=== PATIENT | male | born 1935 | race Caucasian/White ===

== ENCOUNTER 2018-09-13 11:34 | Emergency (ER) | payer MEDICARE, MEDICAID ==
[~2018-09-13] VITALS: Ht 175.3 cm; Wt 98.0 kg
[2018-09-13] MEDS ORDERED: SODIUM CHLORIDE 0.9% 1,000 ML IV ONE (11:50)
[2018-09-13 12:49] LABS: HEMOGLOBIN. 13.2 g/dL (14.0-18.0); MEAN CORPUSCULAR HEMOGLOBIN 30.6 pg (28.0-32.0); MEAN CORPUSCULAR VOLUME 90.2 fL (80.0-94.0); PLATELET 187 x1000/uL (130-400); RED BLOOD CELL COUNT 4.32 mill/uL (4.7-6.1); RED CELL DISTRIBUTION WIDTH 14.6 % (11.6-14.6)
[2018-09-13 12:54] LABS: CHLORIDE 107 mEq/L (98-107)
[2018-09-13 12:58] LABS: PARTIAL THROMBOPLASTIN TIME 26.3 sec (23.4-31.0); PROTHROMBIN TIME 10.2 sec (9.6-11.0)
[2018-09-13] MEDS ORDERED: ASPIRIN 325MG EC TABLET PO ONE (13:45)
[2018-09-13 14:09] LABS: PLATELET ESTIMATE NORMAL
[2018-09-13 16:00] VITALS: BP 139/73
== END 2018-09-13 16:05 | disposition left against medical advice (07) ==
LOC: ER 12:53 → EDBEDREQ 13:46 → EDBEDREQTM 14:39 → CANRESERV 15:23 → ENRESERV 15:23 → ER 16:05 → CANBEDREQ 16:32
DX: R55 Syncope and collapse (principal); I25.10 Atherosclerotic heart disease of native coronary artery without angina pectoris; I10 Essential (primary) hypertension; V40.5XXA Car driver injured in collision with pedestrian or animal in traffic accident, initial encounter; Y93.89 Activity, other specified; Y92.488 Other paved roadways as the place of occurrence of the external cause; Z95.1 Presence of aortocoronary bypass graft
CPT/HCPCS: 36415; 70450; 71045; 80053; 83880; 84484; 85025; 85610; 85730; 93005; 96360; 99284; J7030

== ENCOUNTER → 2020-01-31 | Outpatient (CLI) | payer MEDICARE, MEDICAID ==
[~2020-01-31] MED LIST: FENTANYL CITRATE/PF 50MCG/ML 5ML VIAL ONE; IODIXANOL 320MG/ML 100 ML BOTTLE IV ONE; IOHEXOL-300 100 ML BOTTLE ONE; LIDOCAINE HCL 1% 20ML VIAL (Pyxis) INJ ONE; MIDAZOLAM HCL 5 MG/5 ML VIAL ONE; VERAPAMIL HCL 2.5 MG/1 ML 2ML VIAL IV ONE
== END | disposition home or self-care (01) ==
LOC: LAB 10:12
PROVIDERS: ATTEND Specialist
DX: Z01.812 Encounter for preprocedural laboratory examination (principal); Z20.828 Contact with and (suspected) exposure to other viral communicable diseases
CPT/HCPCS: C9803; U0003

== ENCOUNTER 2020-02-03 07:43 | Day surgery (SDC) | payer MEDICARE, MEDICAID ==
[~2020-02-03] VITALS: Ht 175.3 cm; Wt 98.0 kg
[2020-02-03 08:44] LABS: HEMATOCRIT 39.8 % (42.0-52.0); HEMOGLOBIN 13.4 g/dL (14.0-18.0); MEAN CORPUSCULAR HEMOGLOBIN 30.5 pg (28.0-32.0); MEAN CORPUSCULAR VOLUME 90.6 fL (80.0-94.0); PLATELET 149 x1000/uL (130-400); RED BLOOD CELL COUNT 4.39 mill/uL (4.7-6.1)
[2020-02-03] MEDS ORDERED: ATROPINE SULFATE 1MG/10ML SYR IV PRN (11:00)
[2020-02-03] MEDS ORDERED: ACETAMINOPHEN 325MG TABLET PO PRN (11:00)
[2020-02-03] MEDS ORDERED: SODIUM CHLORIDE 0.45% 400 ML IV SCH (11:00)
[2020-02-03] MEDS ORDERED: HEPARIN SODIUM 1,000 UNIT/1ML VIAL IV ONE (11:00)
== END 2020-02-03 17:00 | disposition home or self-care (01) ==
LOC: CCL 07:43
PROVIDERS: ATTEND Internal Medicine
DX: I25.110 Atherosclerotic heart disease of native coronary artery with unstable angina pectoris (principal); I10 Essential (primary) hypertension; E78.00 Pure hypercholesterolemia, unspecified; Z95.1 Presence of aortocoronary bypass graft; Z79.899 Other long term (current) drug therapy; Z98.890 Other specified postprocedural states
CPT/HCPCS: 36415; 80048; 85027; 93005; 93459; C1760; C1769; C1887; C1893; J1644; J3010; J3490; Q9967; 99152; 99153; G0500

== ENCOUNTER 2022-02-05 14:34 | Emergency (ER) | payer MEDICARE, MEDICAID ==
[~2022-02-05] VITALS: Ht 167.6 cm; Wt 100.0 kg
[2022-02-05 15:25] LABS: BASOPHILS % 1.3 % (0.0-2.0); EOSINOPHILS % 0.9 % (0.0-5.0); HEMATOCRIT. 38.4 % (42.0-52.0); HEMOGLOBIN. 12.9 g/dL (14.0-18.0); LYMPHOCYTES % 23.1 % (20.0-50.0); MEAN CORPUSCULAR HEMOGLOBIN 30.2 pg (28.0-32.0); MEAN CORPUSCULAR VOLUME 89.8 fL (80.0-94.0); MEAN PLATELET VOLUME 9.1 fl (7.4-10.4); MONOCYTES % 10.3 % (2.0-8.0); NEUTROPHILS % 64.4 % (40.0-76.0); PLATELET 167 x1000/uL (130-400); RED BLOOD CELL COUNT 4.27 mill/uL (4.7-6.1); RED CELL DISTRIBUTION WIDTH 14.7 % (11.6-14.6)
[2022-02-05 15:30] LABS: CHLORIDE 108 mEq/L (98-107)
[2022-02-05 15:47] LABS: PROTHROMBIN TIME 10.9 sec (9.6-11.0)
[2022-02-05] MEDS ORDERED: SODIUM CHLORIDE 0.9% 1,000 ML IV ONE (16:00)
[2022-02-05 16:36] LABS: CLARITY URINE CLOUDY (CLEAR); COLOR URINE DARK YELLOW (YELLOW); KETONES URINE TRACE (NEGATIVE); LEUKOCYTE ESTERASE URINE NEGATIVE (NEGATIVE); NITRITE URINE NEGATIVE (NEGATIVE); OCCULT BLOOD URINE TRACE (NEGATIVE); PROTEIN URINE 2+ (NEGATIVE); SPECIFIC GRAVITY URINE 1.025 (1.005-1.030)
[2022-02-05 20:27] VITALS: BP 121/65
== END 2022-02-05 20:28 | disposition home or self-care (01) ==
LOC: ER 14:34
DX: R42 Dizziness and giddiness (principal); N17.9 Acute kidney failure, unspecified; R31.9 Hematuria, unspecified; I11.9 Hypertensive heart disease without heart failure; I25.10 Atherosclerotic heart disease of native coronary artery without angina pectoris; Z95.0 Presence of cardiac pacemaker; Z95.1 Presence of aortocoronary bypass graft
CPT/HCPCS: 36415; 70450; 71045; 80048; 80053; 81003; 84484; 85025; 85610; 93005; 96360; 99285; J7030